=== PATIENT | male | born 1990 | race African-American/Black ===

== ENCOUNTER 2016-09-01 22:06 | Emergency (ER) | payer SELFPAY ==
[2016-09-01] MEDS ORDERED: TDaP 0.5 ML VIAL IM.VACC ONE (23:16)
== END 2016-09-02 00:03 | disposition home or self-care (01) ==
LOC: ER 22:06
DX: S91.342A Puncture wound with foreign body, left foot, initial encounter (principal); W22.8XXA Striking against or struck by other objects, initial encounter; Y92.009 Unspecified place in unspecified non-institutional (private) residence as the place of occurrence of the external cause
CPT/HCPCS: 90471